=== PATIENT | male | born 1975 | race African-American/Black ===

== ENCOUNTER 2021-03-27 08:37 | Emergency (ER) | payer SELFPAY ==
[2021-03-27 08:47] VITALS: BP 135/89; PULSE 78; TEMP 98; BMI 21.2
== END 2021-03-27 11:00 | disposition home or self-care (01) ==
LOC: JER 08:37
DX: E07.9 Disorder of thyroid, unspecified (principal)
CPT/HCPCS: 76536-TC; 87651; 99284-25

== ENCOUNTER 2022-11-05 08:47 | Emergency (ER) | payer BC, OTHER ==
[2022-11-05 08:55] VITALS: BP 137/87; PULSE 99; RESP 17; TEMP 98.1; BMI 26.6
[2022-11-05] MEDS ORDERED: LIDOCAINE 1.5%-EPINEPHRINE 1:200,000/PF 30 ML VIAL IJ ONE (09:25)
[2022-11-05] MEDS ORDERED: LIDOCAINE 1%/EPI 1:100000 (50 ML MULTI DOSE VIAL) ONE (09:30)
[2022-11-05] MEDS ORDERED: ACETAMINOPHEN 500 MG TABLET (FP) PO ONE (09:52)
[2022-11-05] MEDS ORDERED: ACETAMINOPHEN 500 MG TABLET (FP) ONE (10:22)
== END 2022-11-05 10:55 | disposition home or self-care (01) ==
LOC: JER 08:47
PROC: 0HQ0XZZ Repair Scalp Skin, External Approach (ICD-10-PCS; principal; 2022-11-05)
DX: S01.01XA Laceration without foreign body of scalp, initial encounter (principal); W01.198A Fall on same level from slipping, tripping and stumbling with subsequent striking against other object, initial encounter
CPT/HCPCS: 70450-TC; 99284-25

== ENCOUNTER 2023-03-07 10:42 | Emergency (ER) | payer BC, OTHER ==
[2023-03-07 11:20] VITALS: BP 114/74; PULSE 91; RESP 18; TEMP 98.5; BMI 22.0
[2023-03-07] MEDS ORDERED: IBUPROFEN 600 MG TABLET (FP) PO ONE ×2 (16:20→16:26)
== END 2023-03-07 18:21 | disposition home or self-care (01) ==
LOC: JER 10:42
DX: M54.2 Cervicalgia (principal); M54.9 Dorsalgia, unspecified; Y09 Assault by unspecified means
CPT/HCPCS: 70450-TC; 72125-TC; 72128-TC; 99284-25

== ENCOUNTER 2025-01-20 18:13 | Emergency (ER) | payer SELFPAY ==
[2025-01-20 18:20] VITALS: BP 129/84; PULSE 69; RESP 18; TEMP 98.1; BMI 20.7
[2025-01-20] MEDS ORDERED: LIDOCAINE 4% PATCH TP ONE ×2 (20:19→20:28)
[2025-01-20] MEDS: LIDOCAINE 4% PATCH TP ONE ×2 (20:23→20:30)
== END 2025-01-20 20:31 | disposition home or self-care (01) ==
LOC: JERFT 18:13
DX: S20.212A Contusion of left front wall of thorax, initial encounter (principal); Y04.0XXA Assault by unarmed brawl or fight, initial encounter
CPT/HCPCS: 71045-TC-FY; 71101-TC-LT-FY; 99283-25